=== PATIENT | female | born 1995 | race Caucasian/White ===

== ENCOUNTER 2016-07-21 16:21 | Emergency (ER) | payer SELFPAY ==
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
[~2016-07-21 16:21] MED LIST: AMOXIL (BID DO875 MG PO; APRESOLINE25 MG PO; DESYREL100 MG PO; EFFEXOR XR150 MG PO; KLONOPIN1 MG PO; MELATIN3 MG PO; MINIPRESS2 MG PO; NEURONTIN100 MG PO; NICORETTE 2 MG2 MG PO; PROTONIX40 M1; PROTONIX40 MG PO; PROVENTIL OR V6.7 GM INH; PROZAC20 MG PO; REMERON15 MG PO; SEROQUEL200 MG PO; SEROQUEL25 MG PO; TOPAMAX50 MG PO; ULTRAM50 MG PO; ZOFRAN4 MG PO
[2016-07-21 19:02] LABS: BASOPHIL % 0.3 %; EOSINOPHIL # 0.1 K/uL (0.0-0.5); EOSINOPHIL % 1.2 %; HEMATOCRIT 35.9 % (33.0-46.0); HEMOGLOBIN 11.8 g/dL (11.0-15.0); IMMATURE GRANULOCYTE # 0.1 K/uL (0.0-0.3); IMMATURE GRANULOCYTE % 0.6 %; LYMPHOCYTE % 33.2 %; MCH 30.6 pg (27.0-34.0); MCHC 32.9 gm/dL (32.0-36.5); MONOCYTE # 0.6 K/uL (0.0-1.0); MONOCYTE % 6.2 %; MPV 10.1 fl (9.4-12.4); NEUTROPHIL # (ANC) 5.2 K/uL (1.8-7.8); NEUTROPHIL % 58.5 %; NRBC % 0 /100WBC (0-0.00); PLATELET COUNT 315 K/uL (150-450); RBC 3.86 M/uL (3.50-5.00); RDW-CV 13.5 % (11.9-14.6); WBC 8.9 K/uL (4.0-11.0)
[2016-07-21 19:22] LABS: ALBUMIN 3.7 gm/dL (3.5-5.0); ALK PHOS 78 IU/L (33-138); ALT 20 IU/L (12-78); ANION GAP 10.9 (10.0-19.0); AST 13 IU/L (10-40); BLOOD UREA NITROGEN 13 mg/dL (6-24); CALCIUM 8.5 mg/dL (8.5-10.5); CHLORIDE 101 mMol/L (96-110); CO2 29 mMol/L (22-32); ESTIMATED GFR (MDRD EQUATION) > 60; POTASSIUM 3.9 mMol/L (3.7-5.1); SODIUM 137 mMol/L (135-145); TOTAL PROTEIN 6.9 g/dL (6.0-8.4)
[2016-07-21 19:23] LABS: TOTAL BILIRUBIN 0.3 mg/dL (0.0-1.5)
[2016-07-21 19:30] LABS: BILIRUBIN URINE NEGATIVE (NEGATIVE); BLOOD URINE NEGATIVE /UL (NEGATIVE); COLOR URINE YELLOW (YELLOW); GLUCOSE URINE NEGATIVE (NEGATIVE); KETONE URINE NEGATIVE (NEGATIVE); LEUKOCYTES URINE 100 /UL (NEGATIVE); NITRITE URINE NEGATIVE (NEGATIVE); PROTEIN URINE NEGATIVE (NEGATIVE); SPEC GRAVITY URINE 1.005 (1.003-1.035); TURBIDITY URINE CLEAR (CLEAR); UROBILINOGEN URINE NORMAL (NORMAL)
[2016-07-21 19:49] LABS: BACTERIA URINE RARE (NEGATIVE); MUCUS URINE 1+ (NEGATIVE)
[2016-07-21 19:51] LABS: BARBITURATE NEGATIVE (NEGATIVE); COCAINE NEGATIVE (NEGATIVE); OPIATES NEGATIVE (NEGATIVE)
[2016-07-21 19:56] LABS: AMPHETAMINE NEGATIVE (NEGATIVE)
[2016-07-21] MEDS ORDERED: HALDOL5 MG PO (21:17)
[2016-07-21] MEDS ORDERED: HALDOL5 MG/ML IM (21:18)
[2016-07-21] MEDS ORDERED: ATIVAN IM (21:19)
[2016-07-21] MEDS ORDERED: ATIVAN2 MG PO (21:19)
[2016-07-21] MEDS ORDERED: BENADRYL50 MG PO (21:21)
[2016-07-21] MEDS ORDERED: [UNRECOGNIZED DRUG - OTHER] IM (21:23)
== END 2016-07-21 20:28 | disposition disaster alternative care site (69) ==
LOC: GMED 16:21
PROVIDERS: Physician Assistant Medical
DX: G89.29 Other chronic pain (principal); M54.5 Low back pain; R45.851 Suicidal ideations; F41.9 Anxiety disorder, unspecified; F60.3 Borderline personality disorder; F32.9 Major depressive disorder, single episode, unspecified; F43.10 Post-traumatic stress disorder, unspecified; F17.210 Nicotine dependence, cigarettes, uncomplicated; Z88.5 Allergy status to narcotic agent; Z79.899 Other long term (current) drug therapy
CPT/HCPCS: G0480